=== PATIENT | male | born 1970 | race Caucasian/White ===

== ENCOUNTER 2016-07-07 20:03 | Emergency (ER) | payer OTHER ==
--- NOTE | 2016-07-07 21:00 | ED CLINICAL REPORT ---
Clinical Report - Physicians/Mid Levels [facility] [address] [place] [address] 07/07/2016 20:06 Patient: MERRITT JOSEPH Time Seen: 2029Jul 07 2016. Arrived- By private vehicle. Historian- patient and significant other. HISTORY OF PRESENT ILLNESS Chief Complaint: Injury to the left foot. The injury happened just prior to arrival. Occurred at home. (Patient stepped on a toothpick while wearing socks today just prior to arrival. Denies any prior injuries of the left toe. 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 REVIEW OF SYSTEMS The patient complains of pain on weight bearing. All systems otherwise negative, except as recorded above. PAST HISTORY The patient has not had a prior injury to the same area. Tetanus immunization status is up-to-date. SOCIAL HISTORY Smoker- current status unknown. Alcohol use. No drug use. ADDITIONAL NOTES The nursing notes have been reviewed. PHYSICAL EXAM Vital Signs: 07/07/2016 20:16 BP: 140/92. HR: 86. RR: 17. O2 saturation: 98%. Temp: 98.5 F. Pain level now: 9/10. Appearance: Alert. Appears to be in pain. Patient in mild distress. Head: Head atraumatic. Neck: Normal inspection. CVS: Normal heart rate and rhythm. Heart sounds normal. Respiratory: No respiratory distress. Breath sounds normal. Abdomen: No visible injury. Soft. Bowel sounds normal. No abdominal tenderness. Skin: Skin warm. Extremities: Left foot, plantar aspect: of the proximal aspect of the foot. (exposed tooth pick protruding from plantar into diagonal toe/ and almost protruding from dorsal side). Neuro, Vascular and Tendons: Vascular status intact. Motor intact. Gait: Limping gait. LABS, X-RAYS, AND EKG Lt Foot X-ray: (IMPRESSION: 1. Normal left foot. Electronically Final signed by:Eligio Carney MD 07/07/2016 8:58:36 PM). PROGRESS AND PROCEDURES Digital Nerve Block- Toe: Time: 2034Jul 07 2016. Time-out completed immediately before the procedure. Digital nerve block performed on the left great toe. Total volume of 4 mL 0.5% Marcaine infiltrated via two punctures using a 30-gauge needle. No complications encountered. Excellent anesthesia achieved. Course of Care: With gentle traction toothpick was removed. X-ray of the patient with no signs of fracture. Toothpick visualized and removed in its entirety. Given plantar wound will cover with antibiotics for a short stay. 07/07/2016 20:16 BP: 140/92. HR: 86. RR: 17. O2 saturation: 98%. Temp: 98.5 F. Pain level now: 9/10. Patient is stable. Physical exam findings are improved. Symptoms better. Patient/family counseled. Disposition: Discharged. Condition: good. CLINICAL IMPRESSION Single superficial plantar puncture wound to the left great toe. Foreign body present.No infection. Treatment not delayed. INSTRUCTIONS Protect wound and keep wound area clean. Apply bacitracin twice daily. You may walk and bear weight as tolerated. Prescription Medications: Bactrim DS 800 mg / 160 mg: take 1 tablet orally every 12 hours for 3 days. Substitution is permissible. Follow-up: Follow up with your doctor in three days. Understanding of the discharge instructions verbalized by patient. (Electronically signed by Cata Nair P.A.-C 07/07/2016 21:31)
--- NOTE | 2016-07-07 21:00 | ED ORDER SUMMARY ---
..... Patient: MERRITT JOSEPH OrderSheet [facility] VisitID: [id number] [place] [address] 46y, M Registration Date/Time: 07/07/2016 ORDER SHEET Weight: 79.3 kg (stated) Allergies: Penicillins GENERAL ORDERS: Foot 3V Left Urgent (20:25 07/07/2016 Darrell Jeffries) (Ack 20:28 Amy ER Valve And Regulator Repairer) (20:59 [facility]) MEDICATION ORDERS: Bactrim DS PO (Tablet 800-160 mg) 1 tab (NOW) (20:59 07/07/2016 Darrell Jeffries) (Ack 21:13 AnitaQuivey R.N.) (21:26 Marlenyivey R.N.) IV FLUIDS: ORDER SHEET NOTES: [Electronically signed by Cata Nair P.A.-C (21:31 07/07/2016)] [Electronically signed by Сергей Duarte R.N. (02:53 07/08/2016)] [Electronically locked/signed by Сергей Duarte R.N. (02:53 07/08/2016)]
--- NOTE | 2016-07-07 21:00 | DIAGNOSTIC IMAGING REPORT ---
PROCEDURE: XR FOOT 3 VIEWS - LEFT INDICATION: TRAUMA/INJURY TECHNIQUE: Three views. COMPARISON: None. FINDINGS: Osseous structures and joint spaces are normal. No evidence of radiopaque or radiolucent foreign body. IMPRESSION: 1. Normal left foot.
--- NOTE | 2016-07-07 21:00 | ED NURSING NOTES ---
Clinical Report - Nurses [facility] [address] [place] [address] 07/07/2016 20:06 Patient: MERRITT JOSEPH TRIAGE Triage time 20:16. Acuity: LEVEL 4. Chief Complaint: INJURY TO LEFT FOOT. 20:22. Alert. SEPSIS SCREEN: Sepsis Screen. Negative (no infection suspected/documented). SUHAIL COMA SCORE: [place] Coma Scale: 15- eyes open spontaneously (4); best verbal response- oriented x 4 (5); best motor response- obeys commands (6). --20:22 Сергей Duarte R.N. 20:16 07/07/16. BP: 140/92. HR: 86. RR: 17. O2 saturation: 98%. Temp: 98.5 F (oral). Pain level now: 02/25. --20:22 Сергей Duarte R.N. Weight: 79.3 kg stated. Height/Length: 69 inches Per Patient. BMI: 25.8. --20:17 Сергей Duarte R.N. Medications Hydrocodone 5mg , 4x a day. --20:20 Сергей Duarte R.N. Allergies Penicillins. --20:20 Сергей Duarte R.N. Medication/allergy information source: the patient. --20:22 Сергей Duarte R.N. History Arrived by private vehicle. Historian: patient. Accompanied by family. Primary physician (Gino). This occurred (1/2 hours ago). Mechanism of injury: (stepped on a toothpick - still in foot). Treatment MARINE BIOLOGIST: None. PAST MEDICAL HX: Tetanus status: up-to-date. Immunizations: up-to-date. SOCIAL HX: Current every day heavy tobacco smoker- 1 pack per day. Alcohol use; consumes four beers a day. No drug use. No infectious disease exposure. ABUSE ASSESSMENT: No report of abuse. FALL RISK ASSESSMENT: Fall risk assessment completed. No fall risk identified. NUTRITIONAL RISK ASSESSMENT: The nutritional risk assessment revealed no deficiencies. FUNCTIONAL ASSESSMENT: Functional assessment: no impairments noted. LEARNING NEEDS ASSESSMENT: The learning needs assessment revealed no barriers. SKIN INTEGRITY ASSESSMENT: Skin integrity risk assessment completed. No skin integrity risk identified. --20:22 Сергей Duarte R.N. PROBLEMS: no known problems. ADDITIONAL SURGERIES: Back Surgery. Hand surgery. Jaw surgery . --20:21 Сергей Duarte R.N. Interventions ID band on patient. To treatment room. --20: Сергей Duarte R.N. NURSING PROGRESS NOTES 20:20. WOUND REPAIR: Preparation: suture tray set-up. --20:22 Сергей Duarte R.N. 20:22. Two patient identifiers checked. Call light placed in reach. Bed placed in lowest position. Brakes of bed on. Patient ready for evaluation- chart flagged. --20:22 Сергей Duarte R.N. 20:25. WOUND REPAIR: Wound repair performed by PA. Assisted by one tech. The wound is located on the left foot. Procedure: (Toothpick removed). --20:25 Сергей Duarte R.N. 21:21 07/07/2016 Bactrim DS (Sulfamethoxazole-TMP DS) PO 1 tab given. Allergies verified and confirmed 5 rights. --21:26 Сергей Duarte R.N. 21:26. The patient is calm and resting quietly. GENERAL / NEURO / PSYCH: Alert. Oriented X 4. RESPIRATORY: No respiratory distress. SKIN: Skin is warm and dry. --02:53 Сергей Duarte R.N. DISPOSITION / DISCHARGE Departure time: 21:28. Condition at departure: stable. No learning barriers present. Discharge instructions provided and reviewed with the patient. Reviewed medication(s) side effects, precautions, dosing and course information. Prescription(s) given to the patient. Patient verbalized understanding. Written instructions provided in Portuguese. The patient was discharged home and accompanied by family. He left the Emergency Department ambulatory and via private vehicle. Family member driving. FALL RISK ASSESSMENT: Fall risk assessment completed. No fall risk identified. --02:53 Сергей Duarte R.N. 21:23 07/07/16. BP: 116/77. HR: 90. RR: 15. O2 saturation: 98%. Pain level now: 07/28. --02:53 Сергей Duarte R.N. Locked/Released at 07/08/2016 2:53 by Сергей Duarte R.N.
--- NOTE | 2016-07-07 21:00 | ED NURSING NOTES ---
Clinical Report - Nurses [facility] [address] [place] [address] 07/07/2016 20:06 Patient: MERRITT JOSEPH TRIAGE Triage time 20:16. Acuity: LEVEL 4. Chief Complaint: INJURY TO LEFT FOOT. 20:22. Alert. SEPSIS SCREEN: Sepsis Screen. Negative (no infection suspected/documented). SUHAIL COMA SCORE: [place] Coma Scale: 15- eyes open spontaneously (4); best verbal response- oriented x 4 (5); best motor response- obeys commands (6). --20:22 Сергей Duarte R.N. 20:16 07/07/16. BP: 140/92. HR: 86. RR: 17. O2 saturation: 98%. Temp: 98.5 F (oral). Pain level now: 02/25. --20:22 Сергей Duarte R.N. Weight: 79.3 kg stated. Height/Length: 69 inches Per Patient. BMI: 25.8. --20:17 Сергей Duarte R.N. Medications Hydrocodone 5mg , 4x a day. --20:20 Сергей Duarte R.N. Allergies Penicillins. --20:20 Сергей Duarte R.N. Medication/allergy information source: the patient. --20:22 Сергей Duarte R.N. History Arrived by private vehicle. Historian: patient. Accompanied by family. Primary physician (Gino). This occurred (1/2 hours ago). Mechanism of injury: (stepped on a toothpick - still in foot). Treatment INTERNET DEVELOPER: None. PAST MEDICAL HX: Tetanus status: up-to-date. Immunizations: up-to-date. SOCIAL HX: Current every day heavy tobacco smoker- 1 pack per day. Alcohol use; consumes four beers a day. No drug use. No infectious disease exposure. ABUSE ASSESSMENT: No report of abuse. FALL RISK ASSESSMENT: Fall risk assessment completed. No fall risk identified. NUTRITIONAL RISK ASSESSMENT: The nutritional risk assessment revealed no deficiencies. FUNCTIONAL ASSESSMENT: Functional assessment: no impairments noted. LEARNING NEEDS ASSESSMENT: The learning needs assessment revealed no barriers. SKIN INTEGRITY ASSESSMENT: Skin integrity risk assessment completed. No skin integrity risk identified. --20:22 Сергей Duarte R.N. PROBLEMS: no known problems. ADDITIONAL SURGERIES: Back Surgery. Hand surgery. Jaw surgery . --20:21 Сергей Duarte R.N. Interventions ID band on patient. To treatment room. --20: Сергей Duarte R.N. NURSING PROGRESS NOTES 20:20. WOUND REPAIR: Preparation: suture tray set-up. --20:22 Сергей Duarte R.N. 20:22. Two patient identifiers checked. Call light placed in reach. Bed placed in lowest position. Brakes of bed on. Patient ready for evaluation- chart flagged. --20:22 Сергей Duarte R.N. 20:25. WOUND REPAIR: Wound repair performed by PA. Assisted by one tech. The wound is located on the left foot. Procedure: (Toothpick removed). --20:25 Сергей Duarte R.N. 21:21 07/07/2016 Bactrim DS (Sulfamethoxazole-TMP DS) PO 1 tab given. Allergies verified and confirmed 5 rights. --21:26 Сергей Duarte R.N. 21:26. The patient is calm and resting quietly. GENERAL / NEURO / PSYCH: Alert. Oriented X 4. RESPIRATORY: No respiratory distress. SKIN: Skin is warm and dry. --02:53 Сергей Duarte R.N. DISPOSITION / DISCHARGE Departure time: 21:28. Condition at departure: stable. No learning barriers present. Discharge instructions provided and reviewed with the patient. Reviewed medication(s) side effects, precautions, dosing and course information. Prescription(s) given to the patient. Patient verbalized understanding. Written instructions provided in Danish. The patient was discharged home and accompanied by family. He left the Emergency Department ambulatory and via private vehicle. Family member driving. FALL RISK ASSESSMENT: Fall risk assessment completed. No fall risk identified. --02:53 Сергей Duarte R.N. 21:23 07/07/16. BP: 116/77. HR: 90. RR: 15. O2 saturation: 98%. Pain level now: 07/28. --02:53 Сергей Duarte R.N. Locked/Released at 07/08/2016 2:53 by Сергей Duarte R.N.
--- NOTE | 2016-07-07 21:00 | ED ORDER SUMMARY ---
..... Patient: MERRITT JOSEPH OrderSheet [facility] VisitID: [id number] [place] [address] 46y, M Registration Date/Time: 07/07/2016 ORDER SHEET Weight: 79.3 kg (stated) Allergies: Penicillins GENERAL ORDERS: Foot 3V Left Urgent (20:25 07/07/2016 Darrell Jeffries) (Ack 20:28 Amy ER Underwriting Sales Representative) (20:59 [facility]) MEDICATION ORDERS: Bactrim DS PO (Tablet 800-160 mg) 1 tab (NOW) (20:59 07/07/2016 Darrell Jeffries) (Ack 21:13 AnitaQuivey R.N.) (21:26 Marlenyivey R.N.) IV FLUIDS: ORDER SHEET NOTES: [Electronically signed by Cata Nair P.A.-C (21:31 07/07/2016)] [Electronically signed by Сергей Duarte R.N. (02:53 07/08/2016)] [Electronically locked/signed by Сергей Duarte R.N. (02:53 07/08/2016)]
--- NOTE | 2016-07-08 02:54 | ED MED RECONCILIATION SUMMARY ---
Patient: MERRITT JOSEPH Medication Reconciliation Report [facility] VisitID: [id number] [address] [place] [address] 46y, M Registration Date/Time: 07/07/2016 Weight: 79.3 kg Height/Length: 69 in. BMI: 25.8 ALLERGIES: Penicillins The patient's Home Medications are listed below: THE FOLLOWING MEDICATIONS NEED TO BE RECONCILED: Hydrocodone 5mg , 4x a day The source(s) of the original Home Medication information: patient The following Medications were given to the patient in the Emergency Department: Bactrim DS [PO] PO 1 tab, administered: 07/07/2016 9:21:00 PM The following Medications were prescribed to the patient: Bactrim DS 800 mg / 160 mg: take 1 tablet orally every 12 hours for 3 days. Substitution is permissible. -- Cata Nair, PMiniA.-C
--- NOTE | 2016-07-08 02:54 | ED MAR SUMMARY ---
..... Medication Administration Record [facility] [address] [place] [address] Patient: MERRITT JOSEPH Visit ID: [id number] 46y, M Weight: 79.3 kg Height/Length: 69 in BMI: 25.8 ALLERGIES: Penicillins Given 21:21 07/07/2016 Сергей Duarte R.N. Medication Administered: BACTRIM DS [PO] (SULFAMETHOXAZOLE-TMP DS), Dose: 1 tab PO. Medication Ordered: Bactrim DS PO (Tablet 800-160 mg) 1 tab (NOW).
--- NOTE | 2016-07-08 02:54 | ED MED RECONCILIATION SUMMARY ---
Patient: MERRITT JOSEPH Medication Reconciliation Report [facility] VisitID: [id number] [address] [place] [address] 46y, M Registration Date/Time: 07/07/2016 Weight: 79.3 kg Height/Length: 69 in. BMI: 25.8 ALLERGIES: Penicillins The patient's Home Medications are listed below: THE FOLLOWING MEDICATIONS NEED TO BE RECONCILED: Hydrocodone 5mg , 4x a day The source(s) of the original Home Medication information: patient The following Medications were given to the patient in the Emergency Department: Bactrim DS [PO] PO 1 tab, administered: 07/07/2016 9:21:00 PM The following Medications were prescribed to the patient: Bactrim DS 800 mg / 160 mg: take 1 tablet orally every 12 hours for 3 days. Substitution is permissible. -- Cata Nair, PMiniA.-C
--- NOTE | 2016-07-08 02:54 | ED MAR SUMMARY ---
..... Medication Administration Record [facility] [address] [place] [address] Patient: MERRITT JOSEPH Visit ID: [id number] 46y, M Weight: 79.3 kg Height/Length: 69 in BMI: 25.8 ALLERGIES: Penicillins Given 21:21 07/07/2016 Сергей Duarte R.N. Medication Administered: BACTRIM DS [PO] (SULFAMETHOXAZOLE-TMP DS), Dose: 1 tab PO. Medication Ordered: Bactrim DS PO (Tablet 800-160 mg) 1 tab (NOW).
--- NOTE | 2016-07-08 02:54 | ED DISCHARGE INSTRUCTIONS ---
Patient: MERRITT JOSEPH General Instructions [facility] VisitID: [id number] [place] [address] 46y, M Registration Date/Time: 07/07/2016 Single superficial plantar puncture wound to the left great toe. Foreign body present.No infection. Treatment not delayed. INSTRUCTIONS Protect wound and keep wound area clean. Apply bacitracin twice daily. You may walk and bear weight as tolerated. Prescription Medications: Bactrim DS 800 mg / 160 mg: take 1 tablet orally every 12 hours for 3 days. Substitution is permissible. Follow-up: Follow up with your doctor in three days. Understanding of the discharge instructions verbalized by patient. ADDITIONAL INFORMATION Puncture Wound: Foot A puncture is a hole through the skin. Bacteria, dirt, and debris can be drawn into this wound, increasing the risk of infection. Antibiotics are usually not prescribed for this injury unless signs of infection are already present. Therefore, it is important to observe the wound closely for the signs of infection listed below. If you were wearing a rubber-soled shoe when the sharp object punctured your foot, there is a chance that bacteria (called "pseudomonas") from the sole of the shoe may be dragged into the wound and infect the skin, tendon or bone. This infection may start as late as 2-3 weeks after the injury. It is more serious and harder to treat than the common staph and strep skin infections, so follow the advice below. Home Care: Keep the foot raised during the first 24-48 hours to reduce swelling and pain. DO NOT BEAR WEIGHT on the injured foot if it hurts to do so. You may use acetaminophen (Tylenol) or ibuprofen (Motrin, Advil) to control pain, unless another medicine was prescribed. [NOTE: If you have chronic liver or kidney disease or ever had a stomach ulcer or GI bleeding, talk with your doctor before using these medicines.] You may shower as usual, but do not soak the wound in water (no baths or swimming) until the wound seals and there is no more drainage or bleeding. Keep the wound clean and dry. If a bandage was applied and it becomes wet or dirty, replace it. Otherwise, keep the wound covered until there is no more drainage or bleeding. Follow Up: Most puncture wounds heal within 10 days. However, an infection may sometimes occur despite proper treatment. If small particles were drawn into the puncture wound (such as fragments of cloth, rubber, wood or dirt), an infection may occur. These fragments are very hard to find during the first exam since it is not possible to get a good look inside a puncture wound and they do not show on an X-ray. Antibiotics and a minor surgical procedure to find and remove the foreign object will be needed if this happens. Over the next 2-3 weeks, check the wound daily for the warning signs listed below. If you are still having swelling or pain in the foot after two weeks, you should contact your doctor or return to this facility for an x-ray to look for an infection in the bone. [NOTE: Any X-rays taken will be reviewed by a radiologist. You will be notified of any new findings that may affect your care.] Get Prompt Medical Attention if any of the following occur: Increasing pain Foot becomes cold, blue, numb, or tingly Fever of 100.4F (38C) or higher, or as directed by your healthcare provider Redness, warmth, swelling or drainage from the wound Pain or swelling that lasts for two weeks Sulfamethoxazole, Trimethoprim Oral tablet What is this medicine? SULFAMETHOXAZOLE; TRIMETHOPRIM or SMX-TMP (suhl fuh meth OK bandar zohl; trye METH oh prim) is a combination of a sulfonamide antibiotic and a second antibiotic, trimethoprim. It is used to treat or prevent certain kinds of bacterial infections. It will not work for colds, flu, or other viral infections. How should I use this medicine? Take this medicine by mouth with a full glass of water. Follow the directions on the prescription label. Take your medicine at regular intervals. Do not take it more often than directed. Do not skip doses or stop your medicine early. Talk to your high risk ob regarding the use of this medicine in children. Special care may be needed. This medicine has been used in children as young as 2 months of age. What side effects may I notice from receiving this medicine? Side effects that you should report to your doctor or health critical care transport nurse as soon as possible: allergic reactions like skin rash or hives, swelling of the face, lips, or tongue breathing problems fever or chills, sore throat irregular heartbeat, chest pain joint or muscle pain pain or difficulty passing urine red pinpoint spots on skin redness, blistering, peeling or loosening of the skin, including inside the mouth unusual bleeding or bruising unusually weak or tired yellowing of the eyes or skin Side effects that usually do not require medical attention (report to your doctor or health critical care transport nurse if they continue or are bothersome): diarrhea dizziness headache loss of appetite nausea, vomiting nervousness What may interact with this medicine? Do not take this medicine with any of the following medications: aminobenzoate potassium dofetilide metronidazole This medicine may also interact with the following medications: PRISCA inhibitors like benazepril, enalapril, lisinopril, and ramipril cyclosporine digoxin diuretics indomethacin medicines for diabetes methenamine methotrexate phenytoin potassium supplements pyrimethamine sulfinpyrazone tricyclic antidepressants warfarin What if I miss a dose? If you miss a dose, take it as soon as you can. If it is almost time for your next dose, take only that dose. Do not take double or extra doses. Where should I keep my medicine? Keep out of the reach of children. Store at room temperature between 20 to 25 degrees C (68 to 77 degrees F). Protect from light. Throw away any unused medicine after the expiration date. What should I tell my health care provider before I take this medicine? They need to know if you have any of these conditions: anemia asthma being treated with anticonvulsants if you frequently drink alcohol containing drinks kidney disease liver disease low level of folic acid or [id number] dehydrogenase poor nutrition or malabsorption porphyria severe allergies thyroid disorder an unusual or allergic reaction to sulfamethoxazole, trimethoprim, sulfa drugs, other medicines, foods, dyes, or preservatives or trying to get breast-feeding What should I watch for while using this medicine? Tell your doctor or health critical care transport nurse if your symptoms do not improve. Drink several glasses of water a day to reduce the risk of kidney problems. Do not treat diarrhea with over the counter products. Contact your doctor if you have diarrhea that lasts more than 2 days or if it is severe and watery. This medicine can make you more sensitive to the sun. Keep out of the sun. If you cannot avoid being in the sun, wear protective clothing and use a sunscreen. Do not use sun lamps or tanning beds/booths. You have been given the following additional information: Puncture Wound, Foot Sulfamethoxazole, Trimethoprim Oral tablet You may walk and bear weight as tolerated. (Electronically signed by Cata Nair P.A.-C 07/07/2016 21:31)
--- NOTE | 2016-07-08 02:54 | ED DISCHARGE INSTRUCTIONS ---
Patient: MERRITT JOSEPH General Instructions [facility] VisitID: [id number] [place] [address] 46y, M Registration Date/Time: 07/07/2016 Single superficial plantar puncture wound to the left great toe. Foreign body present.No infection. Treatment not delayed. INSTRUCTIONS Protect wound and keep wound area clean. Apply bacitracin twice daily. You may walk and bear weight as tolerated. Prescription Medications: Bactrim DS 800 mg / 160 mg: take 1 tablet orally every 12 hours for 3 days. Substitution is permissible. Follow-up: Follow up with your doctor in three days. Understanding of the discharge instructions verbalized by patient. ADDITIONAL INFORMATION Puncture Wound: Foot A puncture is a hole through the skin. Bacteria, dirt, and debris can be drawn into this wound, increasing the risk of infection. Antibiotics are usually not prescribed for this injury unless signs of infection are already present. Therefore, it is important to observe the wound closely for the signs of infection listed below. If you were wearing a rubber-soled shoe when the sharp object punctured your foot, there is a chance that bacteria (called "pseudomonas") from the sole of the shoe may be dragged into the wound and infect the skin, tendon or bone. This infection may start as late as 2-3 weeks after the injury. It is more serious and harder to treat than the common staph and strep skin infections, so follow the advice below. Home Care: Keep the foot raised during the first 24-48 hours to reduce swelling and pain. DO NOT BEAR WEIGHT on the injured foot if it hurts to do so. You may use acetaminophen (Tylenol) or ibuprofen (Motrin, Advil) to control pain, unless another medicine was prescribed. [NOTE: If you have chronic liver or kidney disease or ever had a stomach ulcer or GI bleeding, talk with your doctor before using these medicines.] You may shower as usual, but do not soak the wound in water (no baths or swimming) until the wound seals and there is no more drainage or bleeding. Keep the wound clean and dry. If a bandage was applied and it becomes wet or dirty, replace it. Otherwise, keep the wound covered until there is no more drainage or bleeding. Follow Up: Most puncture wounds heal within 10 days. However, an infection may sometimes occur despite proper treatment. If small particles were drawn into the puncture wound (such as fragments of cloth, rubber, wood or dirt), an infection may occur. These fragments are very hard to find during the first exam since it is not possible to get a good look inside a puncture wound and they do not show on an X-ray. Antibiotics and a minor surgical procedure to find and remove the foreign object will be needed if this happens. Over the next 2-3 weeks, check the wound daily for the warning signs listed below. If you are still having swelling or pain in the foot after two weeks, you should contact your doctor or return to this facility for an x-ray to look for an infection in the bone. [NOTE: Any X-rays taken will be reviewed by a radiologist. You will be notified of any new findings that may affect your care.] Get Prompt Medical Attention if any of the following occur: Increasing pain Foot becomes cold, blue, numb, or tingly Fever of 100.4F (38C) or higher, or as directed by your healthcare provider Redness, warmth, swelling or drainage from the wound Pain or swelling that lasts for two weeks Sulfamethoxazole, Trimethoprim Oral tablet What is this medicine? SULFAMETHOXAZOLE; TRIMETHOPRIM or SMX-TMP (suhl fuh meth OK bandar zohl; trye METH oh prim) is a combination of a sulfonamide antibiotic and a second antibiotic, trimethoprim. It is used to treat or prevent certain kinds of bacterial infections. It will not work for colds, flu, or other viral infections. How should I use this medicine? Take this medicine by mouth with a full glass of water. Follow the directions on the prescription label. Take your medicine at regular intervals. Do not take it more often than directed. Do not skip doses or stop your medicine early. Talk to your manager search regarding the use of this medicine in children. Special care may be needed. This medicine has been used in children as young as 2 months of age. What side effects may I notice from receiving this medicine? Side effects that you should report to your doctor or health aged or disabled care worker as soon as possible: allergic reactions like skin rash or hives, swelling of the face, lips, or tongue breathing problems fever or chills, sore throat irregular heartbeat, chest pain joint or muscle pain pain or difficulty passing urine red pinpoint spots on skin redness, blistering, peeling or loosening of the skin, including inside the mouth unusual bleeding or bruising unusually weak or tired yellowing of the eyes or skin Side effects that usually do not require medical attention (report to your doctor or health aged or disabled care worker if they continue or are bothersome): diarrhea dizziness headache loss of appetite nausea, vomiting nervousness What may interact with this medicine? Do not take this medicine with any of the following medications: aminobenzoate potassium dofetilide metronidazole This medicine may also interact with the following medications: PRISCA inhibitors like benazepril, enalapril, lisinopril, and ramipril cyclosporine digoxin diuretics indomethacin medicines for diabetes methenamine methotrexate phenytoin potassium supplements pyrimethamine sulfinpyrazone tricyclic antidepressants warfarin What if I miss a dose? If you miss a dose, take it as soon as you can. If it is almost time for your next dose, take only that dose. Do not take double or extra doses. Where should I keep my medicine? Keep out of the reach of children. Store at room temperature between 20 to 25 degrees C (68 to 77 degrees F). Protect from light. Throw away any unused medicine after the expiration date. What should I tell my health care provider before I take this medicine? They need to know if you have any of these conditions: anemia asthma being treated with anticonvulsants if you frequently drink alcohol containing drinks kidney disease liver disease low level of folic acid or [id number] dehydrogenase poor nutrition or malabsorption porphyria severe allergies thyroid disorder an unusual or allergic reaction to sulfamethoxazole, trimethoprim, sulfa drugs, other medicines, foods, dyes, or preservatives or trying to get breast-feeding What should I watch for while using this medicine? Tell your doctor or health aged or disabled care worker if your symptoms do not improve. Drink several glasses of water a day to reduce the risk of kidney problems. Do not treat diarrhea with over the counter products. Contact your doctor if you have diarrhea that lasts more than 2 days or if it is severe and watery. This medicine can make you more sensitive to the sun. Keep out of the sun. If you cannot avoid being in the sun, wear protective clothing and use a sunscreen. Do not use sun lamps or tanning beds/booths. You have been given the following additional information: Puncture Wound, Foot Sulfamethoxazole, Trimethoprim Oral tablet You may walk and bear weight as tolerated. (Electronically signed by Cata Nair P.A.-C 07/07/2016 21:31)
== END 2016-07-07 21:28 | disposition home or self-care (01) ==
LOC: ED SRH 20:03
DX: S91.142A Puncture wound with foreign body of left great toe without damage to nail, initial encounter (principal); W26.8XXA Contact with other sharp object(s), not elsewhere classified, initial encounter; Y93.9 Activity, unspecified; Y92.009 Unspecified place in unspecified non-institutional (private) residence as the place of occurrence of the external cause; Y99.9 Unspecified external cause status; F17.200 Nicotine dependence, unspecified, uncomplicated; Z88.0 Allergy status to penicillin